=== PATIENT | male | born 1985 | race Two or more races ===

== ENCOUNTER 2020-04-12 13:08 | Outpatient (CLI) | payer OTHER | END 2020-04-12 13:12 | disposition home or self-care (01) | LOC: RAD 13:08 | PROVIDERS: ATTEND General Practice | DX: M43.14 Spondylolisthesis, thoracic region (principal) ==

== ENCOUNTER → 2024-09-09 | Outpatient (CLI) | payer OTHER | END | disposition home or self-care (01) | LOC: RAD 10:43 | PROVIDERS: ATTEND Orthopaedic Surgery Sports Medicine | DX: M22.2X1 Patellofemoral disorders, right knee (principal); M22.2X2 Patellofemoral disorders, left knee; M79.671 Pain in right foot; M79.672 Pain in left foot ==

== ENCOUNTER → 2024-11-18 10:31 | Outpatient (CLI) | payer OTHER ==
[2024-11-18 11:31] LABS: HEMATOCRIT 46.3 % (39.0-48.0); HEMOGLOBIN 15.6 g/dL (13-16.00); MEAN CELL VOLUME 87.2 fL (80.0-100.00); MEAN CORPUSCULAR HEMOGLOBIN 29.5 pg (27.00-32.0); MEAN CORPUSCULAR HGB CONC 33.8 g/dl (32.0-36.0); PLATELET COUNT 298 K/uL (150-450); RED BLOOD COUNT 5.31 M/uL (4.00-6.00); RED CELL DISTRIBUTION WIDTH 13.2 % (11.5-14.5)
[2024-11-18 11:34] LABS: URINE APPEARANCE Clear; URINE BILIRRUBIN Negative (NEGATIVE); URINE BLOOD Negative; URINE COLOR Yellow; URINE GLUCOSE Negative (NEGATIVE); URINE KETONE Negative (NEGATIVE); URINE LEUKOCYTE Negative; URINE NITRATE Negative; URINE PROTEIN Negative (NEGATIVE); URINE UROBILINOGEN 0.2 E.U./dl
[2024-11-18 11:38] LABS: URINE RBC 2.7 uL (0.0-20.8)
[2024-11-18 11:47] LABS: URINE BACTERIA 2.4 uL (0.0-1933); URINE EPITHELIAL CELLS 0.1 uL (0.0-38.8); URINE WBC 1.5 uL (0.0-23.2)
[2024-11-18 12:09] LABS: ALBUMIN 4.1 gm/dL (3.4-5.0); BILIRUBIN TOTAL 0.71 mg/dL (0.3-1.2); CALCIUM 9.6 mg/dL (8.5-10.1); CHOL HDL RATIO 3.4 (0-5.0); CREATININE SERUM 1.08 mg/dL (0.70-1.30); GFR 75.73; GLOBULINA 3.4 G/DL (2.4-3.5); POTASSIUM 5.03 mEq/L (3.5-5.1); TOTAL PROTEIN 7.5 gm/dL (6.4-8.2); TSH 1.29 uIU/mL (0.358-3.74)
== END | disposition home or self-care (01) ==
LOC: LAB 10:31
DX: N18.2 Chronic kidney disease, stage 2 (mild) (principal); I11.9 Hypertensive heart disease without heart failure; R73.01 Impaired fasting glucose; E78.5 Hyperlipidemia, unspecified; E21.1 Secondary hyperparathyroidism, not elsewhere classified; E03.9 Hypothyroidism, unspecified; N39.0 Urinary tract infection, site not specified